=== PATIENT | male | born 1955 ===

== ENCOUNTER 2021-12-14 05:30 | Day surgery (SDC) | payer OTHER ==
[~2021-12-14] VITALS: Ht 175.3 cm; Wt 116.1 kg
[~2021-12-14 05:30] MED LIST: ASPIRIN81 MG; IRBESARTAN-HCT1 EACH
[2021-12-14] MEDS ORDERED: LEVOFLOXACIN500 MG PO (08:30)
== END 2021-12-14 12:05 | disposition home or self-care (01) ==
LOC: CIR.AMB 05:30
PROVIDERS: ATTEND Surgery
DX: N40.1 Benign prostatic hyperplasia with lower urinary tract symptoms (principal); N43.3 Hydrocele, unspecified; R33.9 Retention of urine, unspecified; I10 Essential (primary) hypertension; R73.03 Prediabetes; I99.9 Unspecified disorder of circulatory system; Z85.51 Personal history of malignant neoplasm of bladder; Z88.9 Allergy status to unspecified drugs, medicaments and biological substances; Z20.822 Contact with and (suspected) exposure to COVID-19